=== PATIENT | male | born 1955 | race Caucasian/White ===

== ENCOUNTER → 2020-06-17 | Outpatient (CLI) | payer OTHER | LOC: CAT 14:03 | PROVIDERS: ATTEND Internal Medicine | DX: Z13.6 Encounter for screening for cardiovascular disorders (principal); I25.10 Atherosclerotic heart disease of native coronary artery without angina pectoris; E78.00 Pure hypercholesterolemia, unspecified ==

== ENCOUNTER → 2020-06-28 | Outpatient (CLI) | payer OTHER | LOC: SJCVCIMAG 11:34 | PROVIDERS: ATTEND Internal Medicine | DX: I10 Essential (primary) hypertension (principal) ==